=== PATIENT | female | born 2000 | race Caucasian/White ===

== ENCOUNTER 2020-11-23 20:38 | Emergency (ER) | payer SELFPAY ==
[~2020-11-23] VITALS: Ht 157.5 cm; Wt 105.0 kg
[2020-11-23] MEDS ORDERED: ACETAMINOPHEN WITH CODEINE 300/30MG TABLET PO ONE (22:30)
[2020-11-23] MEDS ORDERED: LIDOCAINE HCL/PF 1% 10 MG/ML 5ML VIAL IJ ONE (22:30)
[2020-11-23] MEDS ORDERED: BACITRACIN ZINC OINT UDPKT TOP ONE (22:30)
[2020-11-23] MEDS ORDERED: TETANUS, DIPHTHERIA, PERTUSSIS VAC/PF 0.5ML (>7YR OLD) IM ONE (22:30)
[2020-11-23 23:26] VITALS: BP 115/57
[2020-11-23] MEDS ORDERED: T3 PO (23:52)
== END 2020-11-24 00:04 | disposition home or self-care (01) ==
LOC: ER 20:38
DX: S61.217A Laceration without foreign body of left little finger without damage to nail, initial encounter (principal); X58.XXXA Exposure to other specified factors, initial encounter; Y93.89 Activity, other specified; Y92.89 Other specified places as the place of occurrence of the external cause; Y99.8 Other external cause status
CPT/HCPCS: 12001; 73130; 81025; 90471; 90715; 99283; A4217; J3490; Z7610

== ENCOUNTER 2020-11-26 15:58 | Emergency (ER) | payer OTHER ==
[~2020-11-26] VITALS: Ht 157.5 cm; Wt 104.0 kg
[~2020-11-26 15:58] MED LIST: T3 PO
[2020-11-26 18:00] VITALS: BP 120/60
== END 2020-11-26 20:13 | disposition home or self-care (01) ==
LOC: ER 15:58
DX: S61.412D Laceration without foreign body of left hand, subsequent encounter (principal); X58.XXXD Exposure to other specified factors, subsequent encounter
CPT/HCPCS: 99281

== ENCOUNTER 2020-12-08 15:51 | Emergency (ER) | payer BC, OTHER ==
[~2020-12-08] VITALS: Ht 157.5 cm; Wt 107.0 kg
[2020-12-08 16:06] VITALS: BP 124/58
== END 2020-12-08 17:42 | disposition home or self-care (01) ==
LOC: ER 15:51
DX: Z48.02 Encounter for removal of sutures (principal); Z48.00 Encounter for change or removal of nonsurgical wound dressing
CPT/HCPCS: 99281; Z7610